=== PATIENT | female | born 1960 | race Caucasian/White ===

== ENCOUNTER → 2017-02-18 | Outpatient (CLI) | payer BC ==
--- NOTE | 2017-02-18 09:16 | KCIC ---
Indication: Back injury 3 days ago with upper back pain. Time of exam 8:30 AM There is very slight right convexity thoracic scoliotic curvature. The vertebral body heights appear to be maintained. No acute compression fracture is seen. The pedicles and paraspinous line are intact. IMPRESSION: Mild thoracic scoliosis. No acute bony abnormality is detected. Electronically signed by: Mazin Schneider MD (02/18/2017 9:12 AM) [id number]
--- NOTE | 2017-02-18 10:50 | KCIC ---
History: Routine screening. Technique: Bilateral digital mammographic routine views were obtained with CAD - computer aided detection. Comparison: December 14, 2014. Findings: Breast Tissue Density B :The breast tissue is composed of mixed fatty and fibroglandular tissue. There are no suspicious masses, microcalcifications or areas of architectural distortion. Impression: Negative mammogram. BI-RADS Category 1: Negative. Normal interval followup. A mammogram does not have 100% sensitivity and therefore a negative imaging study should not delay further work up of a suspicious abnormality. The patient will receive a letter with the results in the mail. Patient information is entered into the reminder system with a target due date for the next screening mammogram. The patient will receive a reminder. "Our facility is accredited by the [employer] Mammography [employer]." Electronically signed by: Thom Monzon III, MD (02/18/2017 10:46 AM) [id number]
== END | disposition home or self-care (01) ==
LOC: KCIC MAMMO 08:10
PROVIDERS: ATTEND Family Medicine
DX: Z12.31 Encounter for screening mammogram for malignant neoplasm of breast (principal); S29.9XXD Unspecified injury of thorax, subsequent encounter; M41.84 Other forms of scoliosis, thoracic region; X58.XXXD Exposure to other specified factors, subsequent encounter
CPT/HCPCS: 72072; G0202; 77067

== ENCOUNTER → 2017-06-05 | Outpatient (CLI) | payer BC | END | disposition home or self-care (01) | LOC: KCIC 11:32 | DX: M17.0 Bilateral primary osteoarthritis of knee (principal); M11.261 Other chondrocalcinosis, right knee | CPT/HCPCS: 73562 ==

== ENCOUNTER → 2018-03-08 | Outpatient (CLI) | payer BC ==
--- NOTE | 2018-03-08 17:26 | KCIC ---
Bilateral digital screening mammograms: Reason for examination: Routine screening. Comparison is made to previous studies dated 02/18/2017 and 12/14/2014. Interpretation was made with the benefit of CAD. The skin and nipples show no abnormalities. No abnormal axillary lymph nodes are seen. The breast parenchyma shows scattered fibroglandular density. (Breast density: Category B.) There continues to be a small parenchymal asymmetry present centrally in the left breast seen best on CC view which is unchanged. There are no new dominant masses, suspicious calcifications or architectural distortions. A few scattered benign calcifications are present. Impression: No evidence of malignancy. Recommend routine screening. BI-RADS category 2: Benign "Our facility is accredited by the [employer] Mammography [employer]." This patient's information has been entered into a reminder system for the patient to be notified with the results of her examination and a target date for the next mammogram. Electronically signed by: Martha Dubois MD (03/08/2018 5:23 PM) [id number]
--- NOTE | 2018-03-09 15:23 | KCIC ---
Examination: ELBOW RIGHT 3V History: Medial epicondyle pain Comparison/Correlation: None Findings: Total of 3 images of the right elbow were obtained. Joint spaces are normal. No displaced fracture or bony destructive change. Few punctate densities are present subjacent to the medial condyle laterally. These are of indeterminate significance. Epicondyles are unremarkable. Soft tissues immediately about the epicondylar regions are also unremarkable. No joint effusion. Joint spaces are adequate. Impression: Unremarkable exam. Electronically signed by: Brett De La Rosa MD (03/09/2018 3:19 PM) [id number]
== END | disposition home or self-care (01) ==
LOC: KCIC MAMMO 08:43
PROVIDERS: ATTEND Family Medicine
DX: Z12.31 Encounter for screening mammogram for malignant neoplasm of breast (principal); M25.521 Pain in right elbow; M17.0 Bilateral primary osteoarthritis of knee
CPT/HCPCS: 73080; 77067

== ENCOUNTER → 2019-03-16 | Outpatient (CLI) | payer BC ==
--- NOTE | 2019-03-16 14:12 | KCIC ---
Bilateral digital screening mammograms: Reason for examination: Routine screening. Comparison is made to previous studies dated 03/08/2018 and 02/18/2017. Interpretation was made with the benefit of CAD. The skin and nipples show no abnormalities. No abnormal axillary lymph nodes are seen. The breast parenchyma shows scattered fibroglandular density. (Breast density: Category B.) There are small asymmetries which are stable. There are no new dominant masses, suspicious calcifications or architectural distortions. Impression: No evidence of malignancy. Recommend routine screening. BI-RADS Category 2: Benign. "Our facility is accredited by the [employer] Mammography Program." This patient's information has been entered into a reminder system for the patient to be notified with the results of her examination and a target date for the next mammogram. Electronically signed by: Martha Dubois MD (03/16/2019 2:09 PM) [id number]
== END | disposition home or self-care (01) ==
LOC: KCIC MAMMO 07:56
PROVIDERS: ATTEND Family Medicine
DX: Z12.31 Encounter for screening mammogram for malignant neoplasm of breast (principal)
CPT/HCPCS: 77067